=== PATIENT | female | born 1980 | race Caucasian/White ===

== ENCOUNTER 2018-03-19 22:36 | Inpatient (IN) | payer MEDICAID ==
[~2018-03-19] VITALS: Ht 154.9 cm; Wt 52.2 kg
[2018-03-19 23:51] LABS: BASOPHIL % 0.3 % (0-2); PLATELET COUNT 287 x10^3mcL (130-400); RED CELL DISTRIBUTION WIDTH 13.8 % (11.5-14.5)
[2018-03-20 00:07] LABS: ALBUMIN 3.8 g/dL (3.4-5.0); ALKALINE PHOSPHATASE 58 U/L (46-116); ALT/SGPT 30 U/L (14-59); AST/SGOT 17 U/L (15-37); BILIRUBIN TOTAL 0.4 mg/dL (0.20-1.00); CALCIUM 8.9 mg/dL (8.5-10.1); CARBON DIOXIDE 28.9 mmol/L (21-32); CHLORIDE SERUM 96 mmol/L (98-107); CREATININE SERUM 0.6 mg/dL (0.6-1.0); GFR1 > 60 mL/min; GLUCOSE SERUM 103 mg/dL (74-106); SODIUM SERUM 133 mmol/L (136-145); TOTAL PROTEIN, SERUM 7.4 g/dL (6.4-8.2)
[2018-03-20 00:09] LABS: POTASSIUM SERUM 2.9 mmol/L (3.5-5.1)
[2018-03-20 00:43] LABS: AMPHETAMINE QUAL UR NONE DETECTED (NEG <=1000)
[2018-03-20 04:16] LABS: CHOLESTEROL/HDL RATIO 3.3; PHOSPHOROUS 3.2 mg/dL (2.5-4.9)
[2018-03-20 04:25] LABS: FREE T4 1.23 ng/dL (0.76-1.46); FREE THYROXINE INDEX 4.2 ug/dL (1.4-4.5)
[2018-03-20 04:31] LABS: T3 TOTAL 1.29 ng/mL
[2018-03-20 04:54] VITALS: BP 112/62
[2018-03-20 07:48] LABS: BASOPHIL % 0.3 % (0-2); PLATELET COUNT 257 x10^3mcL (130-400); RED CELL DISTRIBUTION WIDTH 13.4 % (11.5-14.5)
[2018-03-20 08:50] LABS: CALCIUM 8.6 mg/dL (8.5-10.1); CARBON DIOXIDE 26.7 mmol/L (21-32); CHLORIDE SERUM 99 mmol/L (98-107); CREATININE SERUM 0.6 mg/dL (0.6-1.0); GFR1 > 60 mL/min; GLUCOSE SERUM 100 mg/dL (74-106); MAGNESIUM 2.1 mg/dL (1.8-2.4); POTASSIUM SERUM 4.2 mmol/L (3.5-5.1); SODIUM SERUM 136 mmol/L (136-145)
[2018-03-20 09:02] VITALS: BP 96/59
[2018-03-20 12:43] VITALS: BP 102/67
[2018-03-20 15:18] LABS: microscopic required? YES; urine erythrocyte 3+ (NEGATIVE)
[2018-03-20] MEDS ORDERED: BENAZEPRIL HYDR20 M1 PO (15:49)
[2018-03-20] MEDS ORDERED: HYDROCHLOROTHIA25 MG PO (15:50)
[2018-03-20] MEDS ORDERED: ASPIRIN81 MG PO (15:50)
[2018-03-20 17:03] VITALS: BP 111/63
[2018-03-20 20:19] VITALS: BP 117/66
[2018-03-21 04:49] VITALS: BP 103/62
[2018-03-21 06:30] LABS: BASOPHIL % 0.6 % (0-2); PLATELET COUNT 266 x10^3mcL (130-400); RED CELL DISTRIBUTION WIDTH 13.6 % (11.5-14.5)
[2018-03-21 06:58] LABS: CALCIUM 8.9 mg/dL (8.5-10.1); CARBON DIOXIDE 25.3 mmol/L (21-32); CHLORIDE SERUM 103 mmol/L (98-107); CREATININE SERUM 0.7 mg/dL (0.6-1.0); GFR1 > 60 mL/min; GLUCOSE SERUM 79 mg/dL (74-106); POTASSIUM SERUM 3.8 mmol/L (3.5-5.1); SODIUM SERUM 138 mmol/L (136-145)
[2018-03-21 08:35] VITALS: BP 110/62
[2018-03-21 13:46] VITALS: BP 92/46
[2018-03-21 17:19] VITALS: BP 98/64
[2018-03-21 21:01] VITALS: BP 122/61
[2018-03-22 05:47] VITALS: BP 110/54
[2018-03-22 07:44] LABS: CARBON DIOXIDE 28.3 mmol/L (21-32); CHLORIDE SERUM 101 mmol/L (98-107); CREATININE SERUM 0.7 mg/dL (0.6-1.0); GFR1 > 60 mL/min; GLUCOSE SERUM 88 mg/dL (74-106); MAGNESIUM 2.2 mg/dL (1.8-2.4); PHOSPHOROUS 5.4 mg/dL (2.5-4.9); POTASSIUM SERUM 3.8 mmol/L (3.5-5.1); SODIUM SERUM 136 mmol/L (136-145)
[2018-03-22 07:49] LABS: BASOPHIL % 0.3 % (0-2); PLATELET COUNT 275 x10^3mcL (130-400); RED CELL DISTRIBUTION WIDTH 13.6 % (11.5-14.5)
[2018-03-22 08:31] VITALS: BP 112/63
[2018-03-22 12:40] VITALS: BP 136/59
[2018-03-22 17:31] VITALS: BP 111/59
[2018-03-22 20:38] VITALS: BP 130/70
[2018-03-23 06:17] LABS: BASOPHIL % 0.2 % (0-2); PLATELET COUNT 294 x10^3mcL (130-400); RED CELL DISTRIBUTION WIDTH 13.4 % (11.5-14.5)
[2018-03-23 06:19] LABS: CALCIUM 8.8 mg/dL (8.5-10.1); CARBON DIOXIDE 30.3 mmol/L (21-32); CHLORIDE SERUM 96 mmol/L (98-107); CREATININE SERUM 0.7 mg/dL (0.6-1.0); GFR1 > 60 mL/min; GLUCOSE SERUM 97 mg/dL (74-106); MAGNESIUM 1.9 mg/dL (1.8-2.4); PHOSPHOROUS 4.8 mg/dL (2.5-4.9); POTASSIUM SERUM 3.4 mmol/L (3.5-5.1); SODIUM SERUM 134 mmol/L (136-145)
[2018-03-23 06:25] VITALS: Ht 154.9 cm; Wt 52.2 kg
[2018-03-23 06:32] VITALS: BP 104/66
[2018-03-23 07:30] VITALS: BP 105/65
[2018-03-23 08:00] VITALS: BP 105/65
[2018-03-23 16:34] VITALS: BP 108/59
[2018-03-23] MEDS ORDERED: LIPI10 PO (17:12)
[2018-03-23 20:50] VITALS: BP 112/72
[2018-03-24 05:15] VITALS: BP 114/71
[2018-03-24 06:25] LABS: BASOPHIL % 0.5 % (0-2); PLATELET COUNT 293 x10^3mcL (130-400); RED CELL DISTRIBUTION WIDTH 13.6 % (11.5-14.5)
[2018-03-24 06:40] LABS: CALCIUM 8.8 mg/dL (8.5-10.1); CARBON DIOXIDE 30.2 mmol/L (21-32); CHLORIDE SERUM 98 mmol/L (98-107); CREATININE SERUM 0.8 mg/dL (0.6-1.0); GFR1 > 60 mL/min; GLUCOSE SERUM 91 mg/dL (74-106); MAGNESIUM 2.2 mg/dL (1.8-2.4); PHOSPHOROUS 4.5 mg/dL (2.5-4.9); POTASSIUM SERUM 3.7 mmol/L (3.5-5.1); SODIUM SERUM 134 mmol/L (136-145)
[2018-03-24 08:54] VITALS: BP 113/71
[2018-03-24 09:15] VITALS: BP 102/71
[2018-03-24 13:10] VITALS: BP 113/60
[2018-03-24 14:48] VITALS: BP 113/60
[2018-03-24 16:50] VITALS: BP 122/63
== END 2018-03-24 19:56 | DRG 58 ==
LOC: ED 22:36 → DU 03-20 03:27 → MU 03-20 03:27 → DU 03-20 04:35 → MU 03-23 06:27
PROVIDERS: Emergency Medicine; Family Medicine
DX: I67.5 Moyamoya disease (principal); E87.1 Hypo-osmolality and hyponatremia; I10 Essential (primary) hypertension; G90.8 Other disorders of autonomic nervous system; I69.351 Hemiplegia and hemiparesis following cerebral infarction affecting right dominant side; E87.6 Hypokalemia; E78.5 Hyperlipidemia, unspecified; E02 Subclinical iodine-deficiency hypothyroidism
CPT/HCPCS: 83880; 84439; 97110-GP; 97116-GP; 97530-GP; J2060; J2270; J2405; J3475; J3480; J3490; J7030; J8597; Q0092; Q9967